=== PATIENT | female | born 1965 | race African-American/Black ===

== ENCOUNTER 2019-01-28 05:41 | Emergency (ER) | payer OTHER ==
[~2019-01-28] VITALS: Ht 177.8 cm; Wt 81.8 kg
[2019-01-28 05:43] VITALS: BP 140/81
[2019-01-28] MEDS ORDERED: RAPID SEQUENCE KIT [RSI] 1 EACH KIT ONE (05:47)
[2019-01-28] MEDS ORDERED: ROCURONIUM BROMIDE 10 MG/ML 5 ML VIAL ONE (05:47)
[2019-01-28] MEDS ORDERED: SUCCINYLCHOLINE CHLORIDE 20 MG/ML 10 ML VIAL ONE (05:48)
[2019-01-28 06:23] LABS: HEMATOCRIT 32.8 % (36-46); HEMOGLOBIN 9.7 g/dL (12.0-16.0); MEAN CORPUSCULAR HEMOGLOBIN 25.8 pg (26.0-34.0); MEAN CORPUSCULAR HGB CONC 29.6 G/dL (31.0-37.0); MEAN CORPUSCULAR VOLUME 87 fL (80-100); PLATELET COUNT (AUTO) 200 K/uL (150-450); RED BLOOD CELL COUNT(AUTO) 3.77 MIL/uL (4.00-5.20); RED CELL DISTRIBUTION WIDTH 15.9 % (11.5-14.5)
[2019-01-28 06:32] LABS: INR 1.8 (0.9-1.1); PROTHROMBIN TIME 18.7 SEC (9.4-11.6)
[2019-01-28 06:53] LABS: ALANINE AMINOTRANSFERASE 1334 U/L (12-78); ALBUMIN 2.2 g/dL (3.4-5.0); ALKALINE PHOSPHATASE 116 U/L (46-116); ANION GAP 26 mmol/L (8-16); B-TYPE NATRIURETIC PEPTIDE > 5000 pg/mL (0-100); BILIRUBIN,TOTAL 1.7 mg/dL (0.1-1.0); CALCIUM, TOTAL 10.4 mg/dL (8.8-10.5); CARBON DIOXIDE 12 mmol/L (22-29); CHLORIDE 96 mmol/L (98-107); CREATINE KINASE, TOTAL ONLY 235 U/L (26-192); CREATININE 6.16 mg/dL (0.60-1.30); GLOMERULAR FILTR. RATE CALC 9 mL/min (>60); GLUCOSE,RANDOM 176 mg/dL (70-110); SODIUM SERUM 134 mmol/L (136-145); TOTAL PROTEIN, SERUM 6.5 g/dL (6.4-8.2); UREA NITROGEN, BLOOD 84 mg/dL (7-18)
[2019-01-28] MEDS ORDERED: ONDA4VIA22 IV (07:00)
[2019-01-28] MEDS ORDERED: BICT1TAB PO (07:00)
[2019-01-28] MEDS ORDERED: DOCU250C91 PO (07:00)
[2019-01-28] MEDS ORDERED: ACET-2247 PO (07:00)
[2019-01-28] MEDS ORDERED: THIA100T67 PO (07:00)
[2019-01-28] MEDS ORDERED: NALO.4II IV (07:00)
[2019-01-28] MEDS ORDERED: ACYC200C PO (07:00)
[2019-01-28] MEDS ORDERED: BISA-151 PO (07:00)
[2019-01-28] MEDS ORDERED: INSLAN SQ (07:00)
[2019-01-28] MEDS ORDERED: SENN-176 PO (07:00)
[2019-01-28] MEDS ORDERED: INSU100V SQ (07:00)
[2019-01-28] MEDS ORDERED: OXYC5 PO (07:00)
[2019-01-28] MEDS ORDERED: POLY17PO PO (07:00)
[2019-01-28] MEDS ORDERED: METO25XL PO (07:00)
[2019-01-28] MEDS ORDERED: METF-960 PO (07:00)
[2019-01-28 07:02] LABS: POTASSIUM 6.1 mmol/L (3.5-5.1)
[2019-01-28 07:09] LABS: BAND NEUTROPHILS % (MANUAL) 5 % (0-5); EOSINOPHILS % (MANUAL) 1 % (1-6); LYMPHOCYTES % (MANUAL) 28 % (22-44); MONOCYTES % (MANUAL) 19 % (2-9); SEGMENTED NEUTROPHILS % 47 % (40-70)
[2019-01-28 07:20] LABS: ASPARTATE AMINOTRANSFERASE 2662 U/L (15-37)
[2019-01-28] MEDS ORDERED: AMIODARONE HCL 50 MG/ML 3 ML VIAL ONE (18:03)
[2019-01-28] MEDS ORDERED: EPINEPHrine 1:10,000 [1 MG/10 ML] SYRINGE ONE (18:03)
[2019-01-28] MEDS ORDERED: SODIUM BICARBONATE [PEDIATRIC] 8.4% 10 MEQ/10 ML SYRINGE IVP ONE (18:03)
== END 2019-01-28 07:00 | disposition expired ==
LOC: EMS 05:42
DX: I46.9 Cardiac arrest, cause unspecified (principal)
CPT/HCPCS: 36415; 36680; 80053; 82550; 83880; 84484; 85025; 85610; 85730; 92950; 93005; 99285; J0171; J0282; J0330; J3490 ×2